=== PATIENT | female | born 1990 | race Caucasian/White ===

== ENCOUNTER → 2016-05-10 | Outpatient (CLI) | payer OTHER ==
--- NOTE | 2016-05-17 00:59 | ECWPNPC ---
PATIENT NAME: VANESSA PATEL : 1990 GENDER: FEMALE VISIT DATE: 05/10/2016 DISCHARGE DATE: 05/10/16 0957 VISIT LOCKED DATE TIME: PHYSICIAN: JORGE GABRIEL RESOURCE: JORGE GABRIEL REASON FOR APPOINTMENT 1. POST PROCEDURE, LBP HISTORY OF PRESENT ILLNESS HISTORY OF PRESENT ILLNESS: PAIN THE PATIENT DESCRIBES THE PAIN... 25 YEAR OLD FEMALE PATIENT WITH HISTORY OF CHRONIC BACK AND LEG PAIN. PATIENT DESCRIBES THE PAIN ACHING, THROBBING, SORE, AND IT COMES AND GOES WITH A PAIN SCORE OF 3/10. 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 PATIENT RECEIVED A LUMBAR EPIDURAL ON 03/29/2016 AND STATES THAT SHE HAD GOOD PAIN RELIEF FOR A MONTH. PATIENT REPORTS THAT IN THE PAST TWO WEEKS THE PAIN CAME BACK ANTERIOR THIGH AREA TO THE CALF AREA ON BOTH LEGS BUT DOES NOT GO PAST THE ANKLE. PATIENT REPORTS THAT WITH GABAPENTIN SHE GETS GOOD PAIN RELIEF WITH OUT ANY SLEEPING DIFFICULTIES, ABLE TO SLEEP THROUGH THE NIGHT. PATIENT REPORTS THAT SHE HAS RECENTLY LOST 10 LBS. PATIENT REPORTS THAT SITTING AND WALKING FOR A LONG PERIOD OF TIME INCREASES THE PAIN IN HER BACK AND LEGS. PATIENT REPORTS THAT SHE HAS TIRED PHYSICAL THERAPY IN THE PAST AND RECEIVED GOOD PAIN RELIEF UNTIL THEY TIRED TO HAVE HER LIFT ITEMS WHICH MADE THE PAIN WORST, BUT SHE IS OPEN TO TRY PHYSICAL THERAPY AGAIN. PATIENT DENIES UNEXPLAINABLE WEIGHT LOSS, FEVER, CHILLS, NEW CHANGES ON HER URINARY OR BOWEL CONTROL. FALL RISK SCREENING: SCREENING :NO FALLS IN THE PAST YEAR CURRENT MEDICATIONS TAKING HUMULIN R U-500 (CONCENTRATED) 500 UNIT/ML SOLUTION SUBCUTANEOUS SLIDING SCALE TAKING LEVEMIR 100 UNIT/ML SOLUTION 40 UNITS SUBCUTANEOUS DAILY TAKING VICTOZA 18 MG/3ML SOLUTION PEN-INJECTOR 1.2ML SUBCUTANEOUS ONCE A DAY TAKING COZAAR 100 MG TABLET 1 TABLET ORALLY ONCE A DAY TAKING VITAMIN D 19610 UNIT CAPSULE 1 CAPSULE ORALLY WEEKLY TAKING CRYSELLE-28 0.3-30 MG-MCG TABLET 1 TABLET ORALLY DAILY FOR THREE WEEKS, 1 WEEK OFF TAKING ZYRTEC 1 TAB ORAL 10 MG DAILY TAKING FLUTICASONE FUROATE 27.5 MCG/SPRAY SUSPENSION 1 PUFF IN EACH NOSTRIL NASALLY TWICE DAILY TAKING GABAPENTIN 300 MG CAPSULE 1 CAPSULE ORALLY THREE TIMES A DAY MDD3 TAKING ACETAMINOPHEN EXTRA STRENGTH 500 MG TABLET 2 TABLETS NEEDED ORALLY EVERY 6 HRS NOT-TAKING IBUPROFEN 800 MG TABLET 1 TABLET ORALLY THREE TIMES A DAY MEDICATION LIST REVIEWED AND RECONCILED WITH THE PATIENT PAST MEDICAL HISTORY MULTIPLE POSTERIOR DISC HERNIATIONS MILD SPINAL CANAL STENOSIS ESSENTIAL HYPERTENSION TYPE I DIABETES ALLERGIES PENICILLIN (FOR ALLERGIES USE ONLY): HROAT CLOSES: ALLERGY SURGICAL HISTORY NO SURGICAL HISTORY DOCUMENTED. FAMILY HISTORY FATHER: ALIVE 62 YRS, DIAGNOSED WITH HEART DISEASE FATHER - [place] 55YO. 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 NEW PATIENT PAIN DIARY TODAY'S VISITNOTES FROM 0-10, WHAT LEVEL IS YOUR PAIN TODAY?0 PAIN CLINIC PFS, CLERGY, PUBLIC HEALTH REFERRALS PFS REFERRAL NEEDED?NO CLERGY REFERRAL NEEDED?NO PUBLIC HEALTH REFERRAL NEEDED?NO WAS THE PROVIDER NOTIFIED OF ANY PERTINENT INFO?NO PFS REFERRAL NEEDED?NO CLERGY REFERRAL NEEDED?NO PUBLIC HEALTH REFERRAL NEEDED?NO WAS THE PROVIDER NOTIFIED OF ANY PERTINENT INFO?NO HOSPITALIZATION/MAJOR DIAGNOSTIC PROCEDURE MONONUCCLEOSIS 2010 DIABETES REVIEW OF SYSTEMS CONSTITUTIONAL: ANY CHANGE IN YOUR MEDICAL CONDITION? NO . CHILLS NO . FEVER NO . INFECTION: DO YOU HAVE NEW INFECTIONS? NO . DO YOU HAVE HISTORY OF MRSA? NO . MUSCULOSKELETAL: ANY NEW PATTERNS OF PAIN OR NUMBNESS? YES, NEW PAIN IS ACHING AND THROBBING WHEN SITTING OR LAYING ON RIGHT SIDE. GOES INTO CALF . GASTROENTEROLOGY: ANY NEW CHANGE IN BOWEL CONTROL? NO . GENITOURINARY: ANY NEW CHANGE IN BLADDER CONTROL? NO . IS THERE A CHANCE YOU COULD BE ? NO . HEMATOLOGY/LYMPH: DO YOU TAKE ANY BLOOD THINNERS? (FOR EXAMPLE- COUMADIN, PLAVIX, AGGRENOX, PLATEL, PRADAXA, OR XARELTO) NO . WHEN WAS YOUR LAST DOSE? DATE: TIME: . NEUROLOGY: HAVE YOU FALLEN IN THE PAST 6 MONTHS? NO . ANY NEW EXTREMITY NUMBNESS OR WEAKNESS? NO . CARDIOLOGY: DO YOU HAVE A PACEMAKER OR DEFIBRILLATOR? NO . RESPIRATORY: HAVE YOU BEEN SICK IN THE PAST WEEK? NO . FEVER NO . FLU LIKE SYMPTOMS? NO . COUGH NO . INTEGUMENTARY: DO YOU HAVE ANY RASHES OR OPEN SORES? NO . ALLERGIC/IMMUNO: ARE YOU ALLERGIC TO SHELLFISH OR IV DYE? NO . ANY NEW ALLERGIES? NO . PSYCHIATRIC: DO YOU HAVE THOUGHTS OF HURTING YOURSELF OR SOMEONE ELSE? NO . ARE YOU ABUSED, NEGLECTED, OR IN AN UNSAFE ENVIRONMENT? NO . ENDOCRINOLOGY: ARE YOU DIABETIC? YES, TYPE I, MANAGED WITH INSULIN. FSBS 198 STATED BY PT. . OTHER: DO YOU NEED ANY PRESCRIPTIONS? NO . IF YES, PLEASE LIST: ____ . ANY NEW PROBLEMS WITH YOUR MEDICATIONS? NO . WHEN DID YOU LAST EAT? ____ . WHEN DID YOU LAST DRINK? ____ . WHAT DID YOU LAST DRINK? ____ . NAME OF PERSON DRIVING YOU HOME? ____ . DO YOU HAVE ANY OTHER QUESTIONS OR CONCERNS NO . REVIEWED BY: PROVIDER: JORGE GABRIEL MD . VITAL SIGNS WT 317 LBS, HT 68 IN, BMI 48.19 INDEX, BP 158/84 MM HG, HR 103 /MIN, RR 16 /MIN, TEMP 98.9 F, OXYGEN SAT % 98, SAFE IN ENV? (Y/N) Y, NA INITIALS TL 0851, REVIEWED BY: ANDRE. EXAMINATION : PATIENT IS ALERT O X 3 AND COOPERATIVE. PATIENT AMBULATES WITH A LIMP ON THE RIGHT LEG. PATIENT IS ABLE TO FLEX HER BACK AT 85 DEGREES, AND EXTEND BACK AT 10 DEGREES. PATIENT HAS TENDERNESS IN THE RIGHT LOWER BACK PARASPINAL MUSCLE GROUP. RIGHT LEG IS WEAKER AT FLEXION AND EXTENSION. MRI DONE ON 09/08/15 OF THE LUMBAR SPINE SHOWS DISC HERNIATIONS AT L2-L3 THROUGH L5-S1 ALONG WITH CANAL STENOSIS. ASSESSMENTS INTERVERTEBRAL DISC DISORDERS WITH RADICULOPATHY, LUMBAR REGION - M51.16 (PRIMARY) INTERVERTEBRAL DISC DISORDERS WITH RADICULOPATHY, LUMBOSACRAL REGION - M51.17 TREATMENT INTERVERTEBRAL DISC DISORDERS WITH RADICULOPATHY, LUMBAR REGION NOTES: WE DISCUSSED SEVERAL ISSUES WITH MS. PATEL'S PAIN MANAGEMENT CASE. I REFILLED GABAPENTIN TODAY, AND THE PATIENT WILL CONTINUE ON THE SAME MEDICATION REGIMEN BEFORE. I DISCUSSED WITH THE PATIENT THAT SHE IS STILL VERY YOUNG, AND THAT A AEROLOGIST GOAL WOULD BE TO RETURN TO WORK. I SPOKE WITH PATIENT ABOUT CONTINUING HER WEIGHT LOSE. I ADVISED THE PATIENT THAT IT WOULD BE BENEFICIAL FOR HER TO SEE A PROPERTY CLERK TO HELP HER LOSE WEIGHT. I WILL ORDER PHYSICAL THERAPY FOR THE PATIENT TODAY. INFORMED PATIENT THAT SHE NEEDS TO DISCUSS WITH THE PHYSICAL THERAPIST ABOUT WHAT SHE IS ABLE TO DO AND WHAT SHE IS NOT ABLE TO DO. PATIENT TO FOLLOW UP IN 2 MONTHS. INSTRUCTIONS WERE GIVEN, QUESTIONS WERE ANSWERED, PATIENT REPORTS UNDERSTANDING AND AGREES WITH THE PLAN. I, JOHN ALMARAZ, DOCUMENTED THE ABOVE INFORMATION ACTING A SCRIBE FOR DR. GABRIEL. I HAVE REVIEWED THE ABOVE DOCUMENT, WRITTEN BY JOHN ALMARAZ SCRIBE AND I VERIFY THAT IT IS ACCURATE. OTHERS REFILL GABAPENTIN CAPSULE, 300 MG, 1 CAPSULE, ORALLY FOR PAIN, THREE TIMES A DAY MDD3, 30 DAY(S), 90, REFILLS 3 PROCEDURES PN WORKMANS' COMP OPINION IN YOUR OPINION, WAS THE INCIDENT THAT THE PATIENT DESCRIBED THE COMPETENT MEDICAL CAUSE OF THIS INJURY/ILLNESS? YES ARE THE PATIENT'S COMPLAINTS CONSISTENT WITH HIS/HER HISTORY OF THE INJURY/ILLNESS? YES IS THE PATIENT'S HISTORY OF THE INJURY/ILLNESS CONSISTENT WITH YOUR OBJECTIVE FINDING? YES WHAT IS THE PERCENTAGE OF TEMPORARY IMPAIRMENT? MODERATE TO MARKED = 66.7% IS THE PATIENT WORKING? NO DOCTOR ON SITE: JORGE ANGUIANO MD PROCEDURE CODES FA211 ESTABILISHED PATIENT [facility] CHARGE G8730 PAIN ASSESS POS TOOL F/U PLAN DOC G8427 DOC MEDS VERIFIED W/PT OR RE FOLLOW UP 2 MONTHS ELECTRONICALLY SIGNED BY JORGE GABRIEL MD ON 05/16/2016 AT 08:52 PM EST DISCLAIMER : THIS IS A VISIT SUMMARY EXTRACTED FROM THE [employer] CHART. IT IS NOT A COPY OF THE [employer] PROGRESS NOTE. SOM
== END ==
LOC: M PAIN 09:00
PROVIDERS: ATTEND Anesthesiology
DX: Z09 Encounter for follow-up examination after completed treatment for conditions other than malignant neoplasm (principal); G89.29 Other chronic pain; M51.16 Intervertebral disc disorders with radiculopathy, lumbar region; M51.17 Intervertebral disc disorders with radiculopathy, lumbosacral region; E11.9 Type 2 diabetes mellitus without complications; I10 Essential (primary) hypertension; M48.00 Spinal stenosis, site unspecified; Z79.4 Long term (current) use of insulin; Z79.82 Long term (current) use of aspirin; Z79.1 Long term (current) use of non-steroidal anti-inflammatories (NSAID); Z79.899 Other long term (current) drug therapy; Z88.0 Allergy status to penicillin; Z98.890 Other specified postprocedural states

== ENCOUNTER → 2016-07-15 | Outpatient (CLI) | payer OTHER ==
--- NOTE | 2016-07-24 23:46 | ECWPNPC ---
PATIENT NAME: VANESSA PAETL : 1990 GENDER: FEMALE VISIT DATE: 07/15/2016 DISCHARGE DATE: 07/15/16 1655 VISIT LOCKED DATE TIME: PHYSICIAN: JORGE GABRIEL RESOURCE: JORGE GABRIEL REASON FOR APPOINTMENT 1. W/C BACK PAIN HISTORY OF PRESENT ILLNESS HISTORY OF PRESENT ILLNESS: PAIN THE PATIENT DESCRIBES THE PAIN... 25 YEAR OLD FEMALE PATIENT WITH HISTORY OF CHRONIC LOW BACK PAIN. PATIENT DESCRIBES THE PAIN ACHING AND SHARP WITH THE PAIN COMING AND GOING WITH A PAIN SCORE OF 5/10. 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 PATEL TRIED TO CATCH THE PATIENT. PATIENT RECEIVED A LUMBAR EPIDURAL ON 03/29/16 AND SAW A 50% DECREASE IN PAIN AND INCREASED MOBILITY AND FUNCTIONALITY UNTIL LATE JUNE. CURRENTLY THE PATIENT IS USING GABAPENTIN TO AID IN PAIN RELIEF WHICH SHE STATES KEEPS HER MOBILE AND FUNCTIONAL. AT THIS TIME THE PATIENT STATES THAT ANY TYPE OF ACTIVITY INCREASES THE PAIN IN HER LOWER BACK AND MEDICATIONS AND INTERVENTIONS AID IN PAIN RELIEF. MRS. PATEL EXPRESSES SHE WOULD LIKE TO RETURN TO PHYSICAL THERAPY IT AIDED IN PAIN RELIEF WELL MOBILITY AND FUNCTIONALLY. PATIENT DENIES UNEXPLAINABLE WEIGHT LOSS, FEVER, CHILLS, NEW CHANGES ON HER URINARY OR BOWEL CONTROL. FALL RISK SCREENING: SCREENING :NO FALLS IN THE PAST YEAR CURRENT MEDICATIONS TAKING GABAPENTIN 300 MG CAPSULE 1 CAPSULE ORALLY THREE TIMES A DAY MDD3 TAKING HUMULIN R U-500 (CONCENTRATED) 500 UNIT/ML SOLUTION SUBCUTANEOUS SLIDING SCALE TAKING LEVEMIR 100 UNIT/ML SOLUTION 45 UNITS SUBCUTANEOUS DAILY TAKING VICTOZA 18 MG/3ML SOLUTION PEN-INJECTOR 1.8ML SUBCUTANEOUS ONCE A DAY TAKING COZAAR 100 MG TABLET 1 TABLET ORALLY ONCE A DAY TAKING VITAMIN D 51293 UNIT CAPSULE 1 CAPSULE ORALLY 2X/WEEK TAKING CRYSELLE-28 0.3-30 MG-MCG TABLET 1 TABLET ORALLY DAILY FOR THREE WEEKS, 1 WEEK OFF TAKING ZYRTEC 1 TAB ORAL 10 MG DAILY TAKING FLUTICASONE FUROATE 27.5 MCG/SPRAY SUSPENSION 1 PUFF IN EACH NOSTRIL NASALLY TWICE DAILY TAKING ACETAMINOPHEN EXTRA STRENGTH 500 MG TABLET 2 TABLETS NEEDED ORALLY EVERY 6 HRS TAKING ASPIRIN 81 MG TABLET DELAYED RELEASE 1 TABLET ORALLY ONCE A DAY NOT-TAKING IBUPROFEN 800 MG TABLET 1 TABLET ORALLY THREE TIMES A DAY MEDICATION LIST REVIEWED AND RECONCILED WITH THE PATIENT PAST MEDICAL HISTORY MULTIPLE POSTERIOR DISC HERNIATIONS MILD SPINAL CANAL STENOSIS ESSENTIAL HYPERTENSION TYPE I DIABETES LEGALLY BLIND OD ALLERGIES PENICILLIN (FOR ALLERGIES USE ONLY): HROAT CLOSES: ALLERGY SURGICAL HISTORY NO SURGICAL HISTORY DOCUMENTED. FAMILY HISTORY FATHER: ALIVE 62 YRS, DIAGNOSED WITH HEART DISEASE FATHER - [place] 55YO. SOCIAL HISTORY GENERAL: PAIN CLINIC PFS, CLERGY, PUBLIC HEALTH REFERRALS CLERGY REFERRAL NEEDED?NO WAS THE PROVIDER NOTIFIED OF ANY PERTINENT INFO?NO PFS REFERRAL NEEDED?NO PUBLIC HEALTH REFERRAL NEEDED?NO PATIENT: ____. HOSPITALIZATION/MAJOR DIAGNOSTIC PROCEDURE MONONUCCLEOSIS 2010 DIABETES REVIEW OF SYSTEMS CONSTITUTIONAL: ANY CHANGE IN YOUR MEDICAL CONDITION? YES, FOUND OUT 1 MONTH AGO SHE IS LEGALLY BLIND IN OD. HAS BEEN RECEIVING INJECTIONS AND STARTED ON AN EYE DROP(NOT SURE WHAT IT IS). THEY ARE PLANNING ON DOING LASER SUERGERY . CHILLS NO . FEVER NO . INFECTION: DO YOU HAVE NEW INFECTIONS? NO . DO YOU HAVE HISTORY OF MRSA? NO . MUSCULOSKELETAL: ANY NEW PATTERNS OF PAIN OR NUMBNESS? YES, PAIN IS ON LEFT SIDE OF BACK YET. FEELS GOOD WHEN SHE 1ST GETS UP BUT PAIN IS WORSE AFTER DOING THINGS. . GASTROENTEROLOGY: ANY NEW CHANGE IN BOWEL CONTROL? NO . GENITOURINARY: ANY NEW CHANGE IN BLADDER CONTROL? NO . IS THERE A CHANCE YOU COULD BE ? NO . HEMATOLOGY/LYMPH: DO YOU TAKE ANY BLOOD THINNERS? (FOR EXAMPLE- COUMADIN, PLAVIX, AGGRENOX, PLATEL, PRADAXA, OR XARELTO) NO . WHEN WAS YOUR LAST DOSE? DATE: TIME: . NEUROLOGY: HAVE YOU FALLEN IN THE PAST 6 MONTHS? NO . ANY NEW EXTREMITY NUMBNESS OR WEAKNESS? NO . CARDIOLOGY: DO YOU HAVE A PACEMAKER OR DEFIBRILLATOR? NO . RESPIRATORY: HAVE YOU BEEN SICK IN THE PAST WEEK? NO . FEVER NO . FLU LIKE SYMPTOMS? NO . COUGH NO . INTEGUMENTARY: DO YOU HAVE ANY RASHES OR OPEN SORES? NO . ALLERGIC/IMMUNO: ARE YOU ALLERGIC TO SHELLFISH OR IV DYE? NO . ANY NEW ALLERGIES? NO . PSYCHIATRIC: DO YOU HAVE THOUGHTS OF HURTING YOURSELF OR SOMEONE ELSE? NO . ARE YOU ABUSED, NEGLECTED, OR IN AN UNSAFE ENVIRONMENT? NO . ENDOCRINOLOGY: ARE YOU DIABETIC? YES, FSBS THIS A.M--153 . OTHER: DO YOU NEED ANY PRESCRIPTIONS? YES . IF YES, PLEASE LIST: ____GABAPENTIN . ANY NEW PROBLEMS WITH YOUR MEDICATIONS? NO . WHEN DID YOU LAST EAT? ____ . WHEN DID YOU LAST DRINK? ____ . WHAT DID YOU LAST DRINK? ____ . NAME OF PERSON DRIVING YOU HOME? ____ . DO YOU HAVE ANY OTHER QUESTIONS OR CONCERNS NO . REVIEWED BY: PROVIDER: JORGE GABRIEL MD . VITAL SIGNS WT 318 LBS, HT 68 IN, BMI 48.35 INDEX, BP 147/81 MM HG, HR 116 /MIN, RR 16 /MIN, TEMP 99.8 F, OXYGEN SAT % 97, NA INITIALS AW 328. EXAMINATION : PATIENT IS ALERT O X 3 AND COOPERATIVE. PATIENT AMBULATES WITH A LIMP ON THE RIGHT LEG. PATIENT IS ABLE TO FLEX HER BACK AT 85 DEGREES, AND EXTEND BACK AT 10 DEGREES. PATIENT HAS TENDERNESS IN THE RIGHT LOWER BACK PARASPINAL MUSCLE GROUP. RIGHT LEG IS WEAKER AT FLEXION AND EXTENSION. MRI DONE ON 09/08/15 OF THE LUMBAR SPINE SHOWS DISC HERNIATIONS AT L2-L3 THROUGH L5-S1 ALONG WITH CANAL STENOSIS. ASSESSMENTS INTERVERTEBRAL DISC DISORDERS WITH RADICULOPATHY, LUMBAR REGION - M51.16 (PRIMARY) INTERVERTEBRAL DISC DISORDERS WITH RADICULOPATHY, LUMBOSACRAL REGION - M51.17 TREATMENT INTERVERTEBRAL DISC DISORDERS WITH RADICULOPATHY, LUMBAR REGION NOTES: WE DISCUSSED SEVERAL ISSUES WITH MRS. PATEL'S PAIN MANAGEMENT CASE. AT THIS TIME I WOULD LIKE THE PATIENT TO CONTINUE USING GABAPENTIN FOR THE NEUROPATHIC PAIN AND ACETAMINOPHEN FOR THE SOMATIC PAIN. I WOULD LIKE THE PATIENT TO START USING CYMBALTA TO SEE IF IT WILL AID IN RELIEF FOR THE NEUROPATHIC PAIN. PATIENT IS AWARE TO DISCONTINUE THE MEDICATION IS SHE HAS ANY ADVERSE SIDE EFFECTS. I WILL REQUEST AUTHORIZATION FOR THE PATIENT TO RETURN TO PHYSICAL THERAPY SHE DID SEE A BENENFITS TO IT. WE DISCUSSED INTERVENTIONS AND AT THIS TIME THE PATIENT WOULD LIKE TO HOLD OFF ON INJECTIONS AND TRY THE MEDICATIONS AND PHYSICAL THERAPY AT THIS TIME. PATIENT WILL RETURN TO THE CLINIC IN 3 WEEKS AND WAS ADVISED TO CALL IF THE PAIN SIGNIFICANTLY INCREASES OR WITH ANY ADVERSE SIDE EFFECTS TO THE CYMBALTA. INSTRUCTIONS WERE GIVEN, QUESTIONS WERE ANSWERED, PATIENT REPORTS UNDERSTANDING AND AGREES WITH THE PLAN. I, WESTON CASILLAS, DOCUMENTED THE ABOVE INFORMATION ACTING A SCRIBE FOR DR. GABRIEL. I HAVE REVIEWED THE ABOVE DOCUMENT, WRITTEN BY WESTON FELDER AND I VERIFY THAT IT IS ACCURATE. OTHERS REFILL GABAPENTIN CAPSULE, 300 MG, 1 CAPSULE, ORALLY, THREE TIMES A DAY MDD3, 30 DAY(S), 90, REFILLS 2 REFILL ACETAMINOPHEN EXTRA STRENGTH TABLET, 500 MG, 2 TABLETS NEEDED, ORALLY FOR PAIN, EVERY 6 MDD6, 30 DAYS, 80, REFILLS 2 START CYMBALTA CAPSULE DELAYED RELEASE PARTICLES, 30 MG, 1 CAPSULE, ORALLY, TWICE A DAY FOR PAIN, 30 DAY(S), 60, REFILLS 2 PREVENTIVE MEDICINE PAIN CLINIC TEACHING: MEDICATIONS PRINTED INFORMATION ON CYMBALTA GIVEN TO AND REVIEWED WITH PATIENT AND SHE VERBALIZED UNDERSTANDING. PROCEDURE CODES FA211 ESTABILISHED PATIENT [facility] CHARGE G8427 DOC MEDS VERIFIED W/PT OR RE G8730 PAIN ASSESS POS TOOL F/U PLAN DOC DISPOSITION & COMMUNICATION FOLLOW UP 3 WEEKS ELECTRONICALLY SIGNED BY JORGE GABRIEL MD ON 07/24/2016 AT 09:07 PM EDT DISCLAIMER : THIS IS A VISIT SUMMARY EXTRACTED FROM THE [employer] CHART. IT IS NOT A COPY OF THE [employer] PROGRESS NOTE. MIRTHAD
== END | disposition home or self-care (01) ==
LOC: M PAIN 14:40
PROVIDERS: ATTEND Anesthesiology
DX: Z09 Encounter for follow-up examination after completed treatment for conditions other than malignant neoplasm (principal); G89.29 Other chronic pain; M51.16 Intervertebral disc disorders with radiculopathy, lumbar region; M51.17 Intervertebral disc disorders with radiculopathy, lumbosacral region; E10.9 Type 1 diabetes mellitus without complications; I10 Essential (primary) hypertension; M48.00 Spinal stenosis, site unspecified; Z79.899 Other long term (current) drug therapy; Z79.82 Long term (current) use of aspirin; Z79.4 Long term (current) use of insulin; Z88.0 Allergy status to penicillin

== ENCOUNTER → 2016-08-09 | Outpatient (REF) | payer OTHER ==
[2016-08-09 19:30] LABS: FREE T4 0.99 NG/DL (0.76-1.46)
== END ==
LOC: M LAB REF 17:08
PROVIDERS: ATTEND Internal Medicine Nephrology
DX: E03.9 Hypothyroidism, unspecified (principal)

== ENCOUNTER → 2016-10-28 | Outpatient (CLI) | payer OTHER ==
--- NOTE | 2016-11-10 00:36 | ECWPNPC ---
PATIENT NAME: VANESSA PATEL : 1990 GENDER: FEMALE VISIT DATE: 10/28/2016 DISCHARGE DATE: 10/28/16 1617 VISIT LOCKED DATE TIME: PHYSICIAN: JORGE GABRIEL RESOURCE: JORGE GABRIEL REASON FOR APPOINTMENT 1. LOW BACK PAIN HISTORY OF PRESENT ILLNESS HISTORY OF PRESENT ILLNESS: PAIN THE PATIENT DESCRIBES THE PAIN... 25 YEAR OLD FEMALE PATIENT WITH HISTORY OF CHRONIC LOW BACK PAIN. PATIENT DESCRIBES THE PAIN ACHING AND SHARP WITH THE PAIN COMING AND GOING WITH A PAIN SCORE OF 5/10. 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 PATEL TRIED TO CATCH THE PATIENT. PATIENT RECEIVED A LUMBAR EPIDURAL ON 03/29/16 AND STATES THAT THE PAIN IS STARTING TO COME BACK ESPECIALLY IN HER LEGS. CURRENTLY THE PATIENT IS USING GABAPENTIN TO AID IN PAIN RELIEF WHICH SHE STATES KEEPS HER MOBILE AND FUNCTIONAL. AT THIS TIME THE PATIENT STATES THAT ANY TYPE OF ACTIVITY INCREASES THE PAIN IN HER LOWER BACK AND MEDICATIONS AND INTERVENTIONS AID IN PAIN RELIEF. MRS. PATEL EXPRESSES SHE WOULD LIKE TO RETURN TO PHYSICAL THERAPY IT AIDED IN PAIN RELIEF WELL MOBILITY AND FUNCTIONALLY AND THE PATIENT WAS ABLE TO DO THINGS SUCH PUTTING HER SHOES ON AND THE DISHES DUE TO PHYSICAL THERAPY. PATIENT DENIES UNEXPLAINABLE WEIGHT LOSS, FEVER, CHILLS, NEW CHANGES ON HER URINARY OR BOWEL CONTROL. FALL RISK SCREENING: SCREENING :NO FALLS IN THE PAST YEAR CURRENT MEDICATIONS TAKING GABAPENTIN 300 MG CAPSULE 1 CAPSULE ORALLY THREE TIMES A DAY MDD3 TAKING ACETAMINOPHEN EXTRA STRENGTH 500 MG TABLET 2 TABLETS NEEDED ORALLY FOR PAIN EVERY 6 MDD6 TAKING CYMBALTA 30 MG CAPSULE DELAYED RELEASE PARTICLES 1 CAPSULE ORALLY TWICE A DAY FOR PAIN, NOTES: NOT APPROVED TAKING HUMULIN R U-500 (CONCENTRATED) 500 UNIT/ML SOLUTION SUBCUTANEOUS SLIDING SCALE TAKING LEVEMIR 100 UNIT/ML SOLUTION 45 UNITS SUBCUTANEOUS DAILY TAKING VICTOZA 18 MG/3ML SOLUTION PEN-INJECTOR 1.8ML SUBCUTANEOUS ONCE A DAY TAKING COZAAR 100 MG TABLET 1 TABLET ORALLY ONCE A DAY TAKING VITAMIN D 55002 UNIT CAPSULE 1 CAPSULE ORALLY 2X/WEEK TAKING CRYSELLE-28 0.3-30 MG-MCG TABLET 1 TABLET ORALLY DAILY FOR THREE WEEKS, 1 WEEK OFF TAKING ZYRTEC 1 TAB ORAL 10 MG DAILY TAKING FLUTICASONE FUROATE 27.5 MCG/SPRAY SUSPENSION 1 PUFF IN EACH NOSTRIL NASALLY TWICE DAILY TAKING ASPIRIN 81 MG TABLET DELAYED RELEASE 1 TABLET ORALLY ONCE A DAY TAKING AMLODIPINE BESYLATE 10 MG TABLET 1 TABLET ORALLY ONCE A DAY TAKING COREG 3.125 MG TABLET ORALLY NOT-TAKING IBUPROFEN 800 MG TABLET 1 TABLET ORALLY THREE TIMES A DAY MEDICATION LIST REVIEWED AND RECONCILED WITH THE PATIENT PAST MEDICAL HISTORY MULTIPLE POSTERIOR DISC HERNIATIONS MILD SPINAL CANAL STENOSIS ESSENTIAL HYPERTENSION TYPE I DIABETES LEGALLY BLIND OD ALLERGIES PENICILLIN (FOR ALLERGIES USE ONLY): HROAT CLOSES: ALLERGY REVIEW OF SYSTEMS REVIEWED BY: PROVIDER: JORGE GABRIEL MD . CONSTITUTIONAL: ANY CHANGE IN YOUR MEDICAL CONDITION? NO . CHILLS NO . FEVER NO . INFECTION: DO YOU HAVE NEW INFECTIONS? NO . DO YOU HAVE HISTORY OF MRSA? NO . MUSCULOSKELETAL: ANY NEW PATTERNS OF PAIN OR NUMBNESS? NO . GASTROENTEROLOGY: ANY NEW CHANGE IN BOWEL CONTROL? NO . GENITOURINARY: ANY NEW CHANGE IN BLADDER CONTROL? NO . IS THERE A CHANCE YOU COULD BE ? NO . HEMATOLOGY/LYMPH: DO YOU TAKE ANY BLOOD THINNERS? (FOR EXAMPLE- COUMADIN, PLAVIX, AGGRENOX, PLATEL, PRADAXA, OR XARELTO) NO . WHEN WAS YOUR LAST DOSE? DATE: TIME: . NEUROLOGY: HAVE YOU FALLEN IN THE PAST 6 MONTHS? NO . ANY NEW EXTREMITY NUMBNESS OR WEAKNESS? NO . CARDIOLOGY: DO YOU HAVE A PACEMAKER OR DEFIBRILLATOR? NO . RESPIRATORY: HAVE YOU BEEN SICK IN THE PAST WEEK? NO . FEVER NO . FLU LIKE SYMPTOMS? NO . COUGH NO . INTEGUMENTARY: DO YOU HAVE ANY RASHES OR OPEN SORES? NO . ALLERGIC/IMMUNO: ARE YOU ALLERGIC TO SHELLFISH OR IV DYE? NO . ANY NEW ALLERGIES? NO . PSYCHIATRIC: DO YOU HAVE THOUGHTS OF HURTING YOURSELF OR SOMEONE ELSE? NO . ARE YOU ABUSED, NEGLECTED, OR IN AN UNSAFE ENVIRONMENT? NO . ENDOCRINOLOGY: ARE YOU DIABETIC? YES . OTHER: DO YOU NEED ANY PRESCRIPTIONS? YES . IF YES, PLEASE LIST: GABAPENTIN . ANY NEW PROBLEMS WITH YOUR MEDICATIONS? NO . WHEN DID YOU LAST EAT? ____ . WHEN DID YOU LAST DRINK? ____ . WHAT DID YOU LAST DRINK? ____ . NAME OF PERSON DRIVING YOU HOME? ____ . DO YOU HAVE ANY OTHER QUESTIONS OR CONCERNS NO . VITAL SIGNS WT 324.0 LBS, HT 68 IN, BMI 49.26 INDEX, BP 154/93 MM HG, HR 97 /MIN, RR 16 /MIN, TEMP 98.0 F, OXYGEN SAT % 99%, NA INITIALS TL 1436, REVIEWED BY: DYLAN. EXAMINATION : PATIENT IS ALERT O X 3 AND COOPERATIVE. PATIENT AMBULATES WITH A LIMP ON THE RIGHT LEG. PATIENT IS ABLE TO FLEX HER BACK AT 85 DEGREES, AND EXTEND BACK AT 10 DEGREES. PATIENT HAS TENDERNESS IN THE RIGHT LOWER BACK PARASPINAL MUSCLE GROUP. RIGHT LEG IS WEAKER AT FLEXION AND EXTENSION. MRI DONE ON 09/08/15 OF THE LUMBAR SPINE SHOWS DISC HERNIATIONS AT L2-L3 THROUGH L5-S1 ALONG WITH CANAL STENOSIS. ASSESSMENTS INTERVERTEBRAL DISC DISORDERS WITH RADICULOPATHY, LUMBAR REGION - M51.16 (PRIMARY) INTERVERTEBRAL DISC DISORDERS WITH RADICULOPATHY, LUMBOSACRAL REGION - M51.17 TREATMENT INTERVERTEBRAL DISC DISORDERS WITH RADICULOPATHY, LUMBAR REGION NOTES: WE DISCUSSED SEVERAL ISSUES WITH MRS. PATEL'S PAIN MANAGEMENT CASE. AT THIS TIME THE PATIENT HE WILL CONTINUE WITH GABAPENTIN FOR THE NEUROPATHIC PAIN. I WOULD STILL LIKE THE PATIENT OT START CYMBALTA FOR THE NEUROPATHIC PAIN. PATIENT WAS REMINDED TO BRING ALL MEDICATIONS IN THEIR ORIGINAL BOTTLES TO EACH VISIT. PATIENT WAS ADVISED TO BRING MEDICATION TO EVERY VISIT. I WOULD LIKE TO REQUEST PHYSICAL THERAPY AGAIN IT AIDED THE PATIENT GREATLY IN PAIN RELIEF WELL INCREASING MOBILITY AND FUNCTIONALITY. DUE TO THE LUMBAR EPIDURAL STARTING TO WEAR OFF I WOULD LIKE TO REQUEST ANOTHER EPIDURAL. PATIENT HAD LONG LASTING RELIEF WITH INCREASED MOBILITY AND FUNCTIONALITY FROM THE PREVIOUS ONE. WE DISCUSSED THE RISKS, BENENFITS, AND ALTNERATIVES OF THE INJECTION AND THE PATIENT WOULD LIKE TO PROCEED AT THIS TIME. OTHERS REFILL GABAPENTIN CAPSULE, 300 MG, 1 CAPSULE, ORALLY, FOUR TIMES DAILY FOR PAIN, 30 DAY(S), 120, REFILLS 2 START CYMBALTA CAPSULE DELAYED RELEASE PARTICLES, 30 MG, 1 CAPSULE, ORALLY, TWICE A DAY, 30 DAY(S), 60, REFILLS 2 PROCEDURES PN WORKMANS' COMP OPINION IN YOUR OPINION, WAS THE INCIDENT THAT THE PATIENT DESCRIBED THE COMPETENT MEDICAL CAUSE OF THIS INJURY/ILLNESS? YES ARE THE PATIENT'S COMPLAINTS CONSISTENT WITH HIS/HER HISTORY OF THE INJURY/ILLNESS? YES IS THE PATIENT'S HISTORY OF THE INJURY/ILLNESS CONSISTENT WITH YOUR OBJECTIVE FINDING? YES WHAT IS THE PERCENTAGE OF TEMPORARY IMPAIRMENT? MODERATE TO MARKED = 66.7% IS THE PATIENT WORKING? NO DOCTOR ON SITE: JORGE ANGUIANO MD PROCEDURE CODES FA211 ESTABILISHED PATIENT [facility] CHARGE DISPOSITION & COMMUNICATION FOLLOW UP 6 WEEKS ELECTRONICALLY SIGNED BY JORGE GABRIEL MD ON 11/09/2016 AT 12:49 PM EDT DISCLAIMER : THIS IS A VISIT SUMMARY EXTRACTED FROM THE [employer] CHART. IT IS NOT A COPY OF THE [employer] PROGRESS NOTE. MIRTHAD
== END | disposition home or self-care (01) ==
LOC: M PAIN 14:40
PROVIDERS: ATTEND Anesthesiology
DX: G89.29 Other chronic pain (principal); M51.16 Intervertebral disc disorders with radiculopathy, lumbar region; M51.17 Intervertebral disc disorders with radiculopathy, lumbosacral region; M48.00 Spinal stenosis, site unspecified; I10 Essential (primary) hypertension; E10.9 Type 1 diabetes mellitus without complications; H54.8 Legal blindness, as defined in USA; Z79.899 Other long term (current) drug therapy; Z79.82 Long term (current) use of aspirin; Z79.51 Long term (current) use of inhaled steroids; Z88.0 Allergy status to penicillin

== ENCOUNTER → 2017-01-17 | Outpatient (CLI) | payer OTHER ==
--- NOTE | 2017-02-07 01:20 | ECWPNPC ---
PATIENT NAME: VANESSA PATEL : 1990 GENDER: FEMALE VISIT DATE: 01/17/2017 DISCHARGE DATE: 01/17/17 1202 VISIT LOCKED DATE TIME: PHYSICIAN: FERNANDO AGUILAR RESOURCE: FERNANDO AGUILAR REASON FOR APPOINTMENT 1. W/C MEDS, INCREASING PAIN HISTORY OF PRESENT ILLNESS HISTORY OF PRESENT ILLNESS: PAIN THE PATIENT DESCRIBES THE PAIN... THE PATIENT DESCRIBES THE PAIN... 26 YEAR OLD FEMALE PATIENT WITH HISTORY OF CHRONIC LOW BACK PAIN. PATIENT DESCRIBES THE PAIN ACHING AND SHARP WITH THE PAIN COMING AND GOING WITH A PAIN SCORE OF 7/10. PATIENT WAS HURT IN A WORK RELATED INJURY APRIL 2015. SHE WAS WORKING AT [employer] A [employer] WHEN A PATIENT STARTED TO FALL AND MRS. PATEL TRIED TO CATCH THE PATIENT. SHE IS BEING SEEN ON AN URGENT BASIS FOR INCREASE IN LOW BACK PAIN WITH RADIATION/RADICULOPATHY DOWN RIGHT LEG AND FOOT.STATES SHE HAS HAD INCREASE IN LOW BACK PAIN AND RIGHT LEG PAIN AFTER PT ON Dec.SHE HAS FINISHED PT X6 WEEKS .DESCRIBES PAIN INTERMITTENT AND SHARP PAIN.REPORTING NEW ONSET OF RIGHT LATERAL LEG AND FOOT NUMBNESS AND TINGLING SINCE PT.CURRENTLY USING GABAPENTIN 300MG 2 TAB BID.WAS USING VICODEN AND A MUSCLE RELAXER PAST TWO WEEKS PRESCRIBED BY DR. LEE DUE TO INCREASED PAIN AFTER PT.DENIES BOWEL OR BLADDER INCONTINENCE.PAIN IS AGGREVATED BY LAYING DOWN AND FINDING IT DIFFICULT TO SLEEP.REPORTS NOT MUCH IMPROVEMENT WITH PAIN AFTER TAKING HYDROCODONE AND MUSCLE RELAXER. FALL RISK SCREENING: SCREENING :NO FALLS IN THE PAST YEAR CURRENT MEDICATIONS TAKING ACETAMINOPHEN EXTRA STRENGTH 500 MG TABLET 2 TABLETS NEEDED ORALLY FOR PAIN EVERY 6 MDD6 TAKING HUMULIN R U-500 (CONCENTRATED) 500 UNIT/ML SOLUTION SUBCUTANEOUS SLIDING SCALE TAKING LEVEMIR 100 UNIT/ML SOLUTION 45 UNITS SUBCUTANEOUS DAILY TAKING VICTOZA 18 MG/3ML SOLUTION PEN-INJECTOR 1.8ML SUBCUTANEOUS ONCE A DAY TAKING COZAAR 100 MG TABLET 1 TABLET ORALLY ONCE A DAY TAKING VITAMIN D 87411 UNIT CAPSULE 1 CAPSULE ORALLY 2X/WEEK TAKING CRYSELLE-28 0.3-30 MG-MCG TABLET 1 TABLET ORALLY DAILY FOR THREE WEEKS, 1 WEEK OFF TAKING ZYRTEC 1 TAB ORAL 10 MG DAILY TAKING FLUTICASONE FUROATE 27.5 MCG/SPRAY SUSPENSION 1 PUFF IN EACH NOSTRIL NASALLY TWICE DAILY TAKING AMLODIPINE BESYLATE 10 MG TABLET 1 TABLET ORALLY ONCE A DAY TAKING COREG 3.125 MG TABLET ORALLY TAKING GABAPENTIN 300 MG CAPSULE 1 CAPSULE ORALLY FOUR TIMES DAILY FOR PAIN TAKING CYMBALTA 30 MG CAPSULE DELAYED RELEASE PARTICLES 1 CAPSULE ORALLY TWICE A DAY TAKING IBUPROFEN 800 MG TABLET 1 TABLET ORALLY THREE TIMES A DAY NOT-TAKING CYMBALTA 30 MG CAPSULE DELAYED RELEASE PARTICLES 1 CAPSULE ORALLY TWICE A DAY FOR PAIN, NOTES: NOT APPROVED NOT-TAKING ASPIRIN 81 MG TABLET DELAYED RELEASE 1 TABLET ORALLY ONCE A DAY MEDICATION LIST REVIEWED AND RECONCILED WITH THE PATIENT PAST MEDICAL HISTORY MULTIPLE POSTERIOR DISC HERNIATIONS MILD SPINAL CANAL STENOSIS ESSENTIAL HYPERTENSION TYPE I DIABETES LEGALLY BLIND OD ALLERGIES PENICILLIN (FOR ALLERGIES USE ONLY): HROAT CLOSES: ALLERGY SOCIAL HISTORY GENERAL: TOBACCO USE ARE YOU A:NONSMOKER RECREATIONAL DRUG USE DRUG USE? NO , PATIENT DENIES ABUSE OR MISSUSED OF ANY MEDICATION . , PATIENT DENIES USE OF ANY ILLEGAL SUBSTANCE INCLUDING MARIJUANA OR COCAINE . . CAFFEINE CAFFEINE USE? NO . OCCUPATION: [employer]. SPIRITISM NON. LEARNING BARRIERS / SPECIAL NEEDS BARRIERS TO LEARNING?NO HEARING IMPAIRED?NO VISION IMPAIRED?YES WEARS GLASSES COGNITIVELY IMPAIRED?NO READINESS TO LEARN?YES LEARNING PREFERENCES?NO PSYCHOLOGICAL HX TREATMENT NO . PAIN CLINIC PFS, CLERGY, PUBLIC HEALTH REFERRALS HAS THE PATIENT BEEN EDUCATED REGARDING HIS/HER PLAN OF CARE?YES HAS THE PATIENT BEEN EDUCATED REGARDING PAIN, THE RISK FOR PAIN, THE IMPORTANCE OF EFFECTIVE PAIN MANAGEMENT, AND THE PAIN ASSESSMENT PROCESS?YES PATIENT: DENIES USE OF ANY ILLEGAL SUBSTANCE INCLUDING MARIJUANA OR COCAINE, REPORTS BEING EMOTIONALLY STABLE, REPORTS HAVING A SAFE AND ADEQUATE PLACE TO STORE THE MEDICATIONS, IS AWARE THAT THEY ARE RESPONSIBLE AND GUARDIAN OF THE PRESCRIBED MEDICATIONS, DENIES RECREATIONAL DRUG USE. ADVANCE DIRECTIVES HEALTH CARE PROXY? NO , POWER OF SOCIAL WORK CASE MANAGER? NO . HOSPITALIZATION/MAJOR DIAGNOSTIC PROCEDURE [facility] 2010 DIABETES REVIEW OF SYSTEMS REVIEWED BY: PROVIDER: FERNANDO IRELAND . CONSTITUTIONAL: ANY CHANGE IN YOUR MEDICAL CONDITION? YES, RIGHTLEG . CHILLS NO . FEVER NO . INFECTION: DO YOU HAVE NEW INFECTIONS? NO . DO YOU HAVE HISTORY OF MRSA? NO . MUSCULOSKELETAL: ANY NEW PATTERNS OF PAIN OR NUMBNESS? YES, RIGHT HEEL AND FOOT NUMB AND TINGLE NOW . GASTROENTEROLOGY: ANY NEW CHANGE IN BOWEL CONTROL? NO . GENITOURINARY: ANY NEW CHANGE IN BLADDER CONTROL? NO . IS THERE A CHANCE YOU COULD BE ? NO . HEMATOLOGY/LYMPH: DO YOU TAKE ANY BLOOD THINNERS? (FOR EXAMPLE- COUMADIN, PLAVIX, AGGRENOX, PLATEL, PRADAXA, OR XARELTO) NO . WHEN WAS YOUR LAST DOSE? DATE: TIME: . NEUROLOGY: HAVE YOU FALLEN IN THE PAST 6 MONTHS? NO . ANY NEW EXTREMITY NUMBNESS OR WEAKNESS? NO . CARDIOLOGY: DO YOU HAVE A PACEMAKER OR DEFIBRILLATOR? NO . RESPIRATORY: HAVE YOU BEEN SICK IN THE PAST WEEK? NO . FEVER NO . FLU LIKE SYMPTOMS? NO . COUGH NO . INTEGUMENTARY: DO YOU HAVE ANY RASHES OR OPEN SORES? NO . ALLERGIC/IMMUNO: ARE YOU ALLERGIC TO SHELLFISH OR IV DYE? NO . ANY NEW ALLERGIES? NO . PSYCHIATRIC: DO YOU HAVE THOUGHTS OF HURTING YOURSELF OR SOMEONE ELSE? NO . ARE YOU ABUSED, NEGLECTED, OR IN AN UNSAFE ENVIRONMENT? NO . ENDOCRINOLOGY: ARE YOU DIABETIC? YES . OTHER: DO YOU NEED ANY PRESCRIPTIONS? NO . IF YES, PLEASE LIST: ____ . ANY NEW PROBLEMS WITH YOUR MEDICATIONS? NO . WHEN DID YOU LAST EAT? ____ . WHEN DID YOU LAST DRINK? ____ . WHAT DID YOU LAST DRINK? ____ . NAME OF PERSON DRIVING YOU HOME? ____ . DO YOU HAVE ANY OTHER QUESTIONS OR CONCERNS 2-3 WEEKS AGO HURT WITH PHYSICAL THERPY USING WEIGHT AND MACHINES WITH HER . VITAL SIGNS WT 325 LBS, HT 68 IN, BMI 49.41 INDEX, BP 135/88 MM HG, HR 105 /MIN, RR 16 /MIN, TEMP 99.1 F, OXYGEN SAT % 98, REVIEWED BY: NL. EXAMINATION GENERAL EXAMINATION: GENERAL APPEARANCE:OBESE. LUNGS:LUNG LUJAN ARE CLEAR TO AUSCULTATION BILATERALLY. GOOD MOVEMENT OF AIR. HEART:S1, S2 IN A REGULAR RATE AND RHYTHM. NO SIGNIFICANT MURMURS, RUBS OR GALLOPS NOTED. MUSCULOSKELETAL:TRIGGER POINTS:RIGHT L4/5 PARASPINAL REGION. LUMBAR SACRAL SPINEMUSCLE STRENGTH TESTING 5/5 BILATERAL.INCREASE LBP WITH MST OVER RIGHT LEG. ASSESSMENTS INTERVERTEBRAL DISC DISORDERS WITH RADICULOPATHY, LUMBAR REGION - M51.16 (PRIMARY) MYOFASCIAL PAIN - M79.1 TREATMENT INTERVERTEBRAL DISC DISORDERS WITH RADICULOPATHY, LUMBAR REGION NOTES: REQUEST MRI L/S SPINE-COMPSTOP PT. PROCEDURES PN WORKMANS' COMP OPINION IN YOUR OPINION, WAS THE INCIDENT THAT THE PATIENT DESCRIBED THE COMPETENT MEDICAL CAUSE OF THIS INJURY/ILLNESS? YES ARE THE PATIENT'S COMPLAINTS CONSISTENT WITH HIS/HER HISTORY OF THE INJURY/ILLNESS? YES IS THE PATIENT'S HISTORY OF THE INJURY/ILLNESS CONSISTENT WITH YOUR OBJECTIVE FINDING? YES WHAT IS THE PERCENTAGE OF TEMPORARY IMPAIRMENT? MODERATE TO MARKED = 66.7% IS THE PATIENT WORKING? NO DOCTOR ON SITE: JORGE ANGUIANO MD PROCEDURE CODES FA211 ESTABILISHED PATIENT [facility] CHARGE DISPOSITION & COMMUNICATION FOLLOW UP 4 WEEKS (REASON: W/C MRI L/S SPINE) ELECTRONICALLY SIGNED BY BKEA CALHOUN ON 02/06/2017 AT 06:52 PM EDT DISCLAIMER : THIS IS A VISIT SUMMARY EXTRACTED FROM THE [employer]? CHART. IT IS NOT A COPY OF THE [employer]? PROGRESS NOTE. SOM
== END ==
LOC: M PAIN 11:15
PROVIDERS: ATTEND Nurse Practitioner Family
DX: G89.29 Other chronic pain (principal); M51.16 Intervertebral disc disorders with radiculopathy, lumbar region; M79.1 Myalgia; I10 Essential (primary) hypertension; E11.9 Type 2 diabetes mellitus without complications; Z88.0 Allergy status to penicillin; Z79.1 Long term (current) use of non-steroidal anti-inflammatories (NSAID); Z79.4 Long term (current) use of insulin; Z79.899 Other long term (current) drug therapy

== ENCOUNTER → 2017-02-14 | Outpatient (CLI) | payer OTHER | LOC: M PAIN 10:00 | PROVIDERS: ATTEND Nurse Practitioner Family | DX: M51.16 Intervertebral disc disorders with radiculopathy, lumbar region (principal); M79.1 Myalgia; G89.29 Other chronic pain; I10 Essential (primary) hypertension; E10.9 Type 1 diabetes mellitus without complications; Z79.4 Long term (current) use of insulin; Z79.899 Other long term (current) drug therapy; Z88.0 Allergy status to penicillin ==

== ENCOUNTER → 2017-04-28 | Outpatient (CLI) | payer OTHER | LOC: M PAIN 10:30 | DX: G89.29 Other chronic pain (principal); M51.16 Intervertebral disc disorders with radiculopathy, lumbar region; M51.26 Other intervertebral disc displacement, lumbar region; I10 Essential (primary) hypertension; E11.9 Type 2 diabetes mellitus without complications; H54.8 Legal blindness, as defined in USA; Z88.0 Allergy status to penicillin; Z79.4 Long term (current) use of insulin; Z79.899 Other long term (current) drug therapy | CPT/HCPCS: G0463 ==

== ENCOUNTER → 2020-04-29 | Outpatient (CLI) | payer SELFPAY | LOC: M LABSMTC 13:20 | PROVIDERS: ATTEND Pediatrics | DX: Z20.822 Contact with and (suspected) exposure to COVID-19 (principal) ==

== ENCOUNTER → 2021-01-20 | Outpatient (REF) | payer OTHER | LOC: M LAB REF 13:40 | PROVIDERS: ATTEND Nurse Practitioner Family | DX: E83.42 Hypomagnesemia (principal) ==

== ENCOUNTER → 2022-07-07 | Outpatient (REF) | payer OTHER ==
[2022-07-07 19:57] LABS: CREATININE,RANDOM URINE 40.2 MG/DL
[2022-07-07 19:59] LABS: TOTAL PROTEIN,RANDOM URINE 184.9 MG/DL (0.0-14.0)
== END ==
LOC: M LAB REF 17:19
PROVIDERS: ATTEND Nurse Practitioner Family
DX: R80.9 Proteinuria, unspecified (principal)

== ENCOUNTER → 2023-01-19 | Outpatient (REF) | payer OTHER ==
[2023-01-19 18:34] LABS: TOTAL PROTEIN,RANDOM URINE 26.5 MG/DL (0.0-14.0)
[2023-01-19 18:41] LABS: FREE T4 1.1 NG/DL (0.89-1.76); THYROID STIMULATING HORMONE 5.076 uIU/ML (0.55-4.78)
== END ==
LOC: M LAB REF 17:03
PROVIDERS: ATTEND Nurse Practitioner Family
DX: E03.9 Hypothyroidism, unspecified (principal); R80.9 Proteinuria, unspecified

== ENCOUNTER → 2023-06-06 | Outpatient (REF) | payer OTHER ==
[~2023-06-06] MED LIST: ALBU8.5H INH; AMLO1TAB25 PO; ATOR40TA75 PO; CARV25TA PO; CETI-24 PO; CIME300T91 PO; DULO1CAP6 PO; ELINTAB PO; ERGO500029 PO; FARX1TAB3 PO; FINE20TA PO; HYDR-3490 PO; INSUR50VL SQ; LEVO125T4 PO; LEVO1TAB39 PO; LOSA100T46 PO; MELO15TA28 PO; TIRZ7.5P SQ; TOUJ300I2 SQ
== END ==
LOC: M SFHCWOUN 16:42
PROVIDERS: ATTEND Physician Assistant
DX: L97.512 Non-pressure chronic ulcer of other part of right foot with fat layer exposed (principal); M79.89 Other specified soft tissue disorders

== ENCOUNTER 2023-06-13 10:39 | Inpatient (IN) | payer OTHER, MEDICAID ==
[~2023-06-13] VITALS: Ht 172.7 cm; Wt 163.7 kg
[2023-06-13 12:08] LABS: BASO # 0.1 10^3/uL (0.0-0.2); BASO % 0.5 % (0.0-1.0); EOS # 0.3 10^3/uL (0.0-0.5); EOS % 2.6 % (0.0-3.0); HEMATOCRIT 42.5 % (36.0-47.0); HEMOGLOBIN 13.6 g/dl (12.0-15.5); LYMPH # 1.9 10^3/uL (1.5-5.0); LYMPH % 19.5 % (24.0-44.0); MEAN CORPUSCULAR HEMOGLOBIN 26.8 pg (27.0-33.0); MEAN CORPUSCULAR VOLUME 83.7 fl (80.0-96.0); MONO # 0.6 10^3/uL (0.0-0.8); MONO % 5.5 % (2.0-8.0); NEUTROPHILS # 7.1 10^3/uL (1.5-8.5); NEUTROPHILS % 71.5 % (36.0-66.0); PLATELET COUNT, AUTOMATED 471 10^3/uL (150-450); RED BLOOD COUNT 5.08 10^6/uL (4.00-5.40)
[2023-06-13 12:36] LABS: BLOOD UREA NITROGEN 17 MG/DL (9-23); CALCIUM LEVEL 9.1 MG/DL (8.5-10.1); CARBON DIOXIDE LEVEL 30 MMOL/L (20-31); CHLORIDE LEVEL 103 MMOL/L (98-107); GLOMERULAR FILTRATION RATE > 60.0 (>60); GLUCOSE, FASTING 212 MG/DL (60-100); POTASSIUM SERUM 4.2 MMOL/L (3.5-5.1); SODIUM LEVEL 137 MMOL/L (136-145)
[2023-06-13 12:58] LABS: RSV AMPLIFICATION NEGATIVE (NEGATIVE)
[2023-06-13 13:01] LABS: HCG, SERUM QUALITATIVE NEGATIVE (NEGATIVE)
[2023-06-13 14:05] LABS: ERYTHROCYTE SEDIMENTATION RATE > 130 mm/hr (0-20)
[2023-06-13 14:26] LABS: ALBUMIN 2.8 G/DL (3.2-5.2); ALKALINE PHOSPHATASE 91 U/L (46-116); ALT/SGPT 17 U/L (7.0-40); AST/SGOT 12 U/L (<34); BILIRUBIN,DIRECT < 0.1 MG/DL (<0.4); BILIRUBIN,TOTAL 0.2 MG/DL (0.3-1.2)
[2023-06-13] MEDS ORDERED: VANCOMYCIN HCL 2,000 MG in IV FLUID PLACE HOLDER 1 EA IV ONE (15:45)
[2023-06-13] MEDS: VANCOMYCIN HCL 1,000 MG, VIAL MATE ADAPTER 1 EACH in D5W 250 ML IV ONE ×2 (16:01→17:06)
[2023-06-13] MEDS ORDERED: MAALOX 30 ML SUSP *UDC PO PRN (16:50)
[2023-06-13] MEDS ORDERED: ACETAMINOPHEN TAB 650MG DOSE (2X325MG) PO PRN (16:50)
[2023-06-13] MEDS ORDERED: MOM 30ML SUSPENSION UDC PO PRN (16:50)
[2023-06-13] MEDS ORDERED: GLUCAGON INJ 1MG VIAL SC PRN (16:55)
[2023-06-13] MEDS ORDERED: GLUCOSE 4GM CHEW TABLET PO PRN (16:55)
[2023-06-13] MEDS ORDERED: DEXTROSE 50% 50ML SYRINGE IV PRN (16:55)
[2023-06-13] MEDS ORDERED: FARX1TAB3 PO (17:25)
[2023-06-13] MEDS ORDERED: ALBU8.5H INH (17:25)
[2023-06-13] MEDS ORDERED: TIRZ7.5P SQ (17:25)
[2023-06-13] MEDS ORDERED: FINE20TA PO (17:25)
[2023-06-13] MEDS ORDERED: ATOR40TA75 PO (17:25)
[2023-06-13] MEDS ORDERED: ERGO500029 PO (17:25)
[2023-06-13] MEDS ORDERED: LEVO125T4 PO (17:25)
[2023-06-13] MEDS ORDERED: HYDR-3490 PO (17:25)
[2023-06-13] MEDS ORDERED: MELO15TA28 PO (17:25)
[2023-06-13] MEDS ORDERED: AMLO1TAB25 PO (17:25)
[2023-06-13] MEDS ORDERED: ELINTAB PO (17:25)
[2023-06-13] MEDS ORDERED: INSUR50VL SQ (17:25)
[2023-06-13] MEDS ORDERED: LEVO1TAB39 PO (17:25)
[2023-06-13] MEDS ORDERED: TOUJ300I2 SQ (17:25)
[2023-06-13] MEDS ORDERED: DULO1CAP6 PO (17:25)
[2023-06-13] MEDS ORDERED: CETI-24 PO (17:25)
[2023-06-13] MEDS ORDERED: LOSA100T46 PO (17:25)
[2023-06-13] MEDS ORDERED: CARV25TA PO (17:25)
[2023-06-13] MEDS ORDERED: CIME300T91 PO (17:25)
[2023-06-13] MEDS ORDERED: HOME MED LIST COMPLETE! XX SCH (17:40)
[2023-06-13] MEDS: LevoFLOXacin IV 750 MG in IV 1 EA IV SCH (18:18)
[2023-06-13] MEDS: INSULIN LISPRO (NovoLOG) PER UNIT SC SCH ×2 (18:26→21:00)
[2023-06-13 22:00] VITALS: BP 139/83; TEMP 98.2; O2SAT 95
[2023-06-13] MEDS: HEPARIN SOD (PORCINE) 5000UNITS/ML 1ML VIAL/SYRINGE SC SCH (22:12)
[2023-06-13] MEDS ORDERED: ALBUTEROL 90 MCG/ACT 8GM HFA INHALER INH PRN (22:20)
[2023-06-13] MEDS: DULoxetine 30MG CAPSULE (CYMBALTA) PO SCH (22:46)
[2023-06-13] MEDS: CARVedilol 12.5 MG TAB PO SCH (22:47)
[2023-06-14] MEDS: LEVOTHYROXINE 125MCG TABLET (0.125MG) PO SCH (05:44)
[2023-06-14 05:50] VITALS: BP 139/84; TEMP 98.1; O2SAT 97
[2023-06-14] MEDS ORDERED: DEXTROSE 50% 50ML SYRINGE IV PRN ×3 (06:25→20:50)
[2023-06-14] MEDS ORDERED: GLUCOSE 4GM CHEW TABLET PO PRN ×3 (06:25→20:50)
[2023-06-14] MEDS ORDERED: GLUCAGON INJ 1MG VIAL SC PRN ×3 (06:25→20:50)
[2023-06-14 06:47] LABS: BLOOD UREA NITROGEN 13 MG/DL (9-23); CALCIUM LEVEL 9.3 MG/DL (8.5-10.1); CARBON DIOXIDE LEVEL 30 MMOL/L (20-31); CHLORIDE LEVEL 101 MMOL/L (98-107); CREATININE FOR GFR 0.58 MG/DL (0.55-1.30); GLOMERULAR FILTRATION RATE > 60.0 (>60); GLUCOSE, FASTING 227 MG/DL (60-100); MAGNESIUM LEVEL 2.1 MG/DL (1.8-2.4); POTASSIUM SERUM 3.7 MMOL/L (3.5-5.1); SODIUM LEVEL 137 MMOL/L (136-145)
[2023-06-14] MEDS: INSULIN LISPRO (NovoLOG) PER UNIT SC SCH ×2 (06:49→21:47)
[2023-06-14] MEDS: LOSARTAN 50MG TABLET PO SCH (09:03)
[2023-06-14] MEDS ORDERED: MIDAZOLAM INJ 2MG/2ML VIAL As Ordered ONE (12:53)
[2023-06-14] MEDS ORDERED: fentaNYL 100 MCG/2 ML INJECTION As Ordered ONE (12:53)
[2023-06-14] MEDS ORDERED: ONDANSETRON 4MG 2ML VIAL As Ordered ONE (12:53)
[2023-06-14] MEDS ORDERED: LIDOCAINE 2% 100MG/5ML SDV (FOR ANES.) As Ordered ONE (12:53)
[2023-06-14] MEDS ORDERED: propofoL 200 MG/20 ML VIAL As Ordered ONE (12:54)
[2023-06-14] MEDS: LIDOCAINE 1% SDV 30ML VIAL As Ordered ONE (13:41)
[2023-06-14] MEDS: INSULIN LISPRO (NovoLOG) PER UNIT SC PRN (15:07)
[2023-06-14 15:50] VITALS: BP 128/81; TEMP 97.6
[2023-06-14 19:50] VITALS: BP 109/58; TEMP 97.7; O2SAT 97
[2023-06-15 05:16] VITALS: BP 134/81; TEMP 97.5
[2023-06-15 07:28] LABS: BLOOD UREA NITROGEN 16 MG/DL (9-23); CALCIUM LEVEL 8.6 MG/DL (8.5-10.1); CARBON DIOXIDE LEVEL 29 MMOL/L (20-31); CHLORIDE LEVEL 99 MMOL/L (98-107); CREATININE FOR GFR 0.64 MG/DL (0.55-1.30); GLOMERULAR FILTRATION RATE > 60.0 (>60); GLUCOSE, FASTING 327 MG/DL (60-100); POTASSIUM SERUM 3.8 MMOL/L (3.5-5.1); SODIUM LEVEL 136 MMOL/L (136-145)
[2023-06-15] MEDS: INSULIN LISPRO (NovoLOG) PER UNIT SC SCH (07:44)
[2023-06-15] MEDS: LEVEMIR (INSULIN DETEMIR) 1 UNITS/0.01ML SC SCH ×2 (09:23→21:43)
[2023-06-15] MEDS: LevoFLOXacin 750 MG TABLET PO SCH (18:04)
[2023-06-15 19:59] VITALS: BP 151/78; TEMP 97.7; O2SAT 93
[2023-06-16 05:43] VITALS: BP 134/69; TEMP 97.7; O2SAT 96
[2023-06-16 07:01] LABS: BASO % 0.6 % (0.0-1.0); EOS # 0.2 10^3/uL (0.0-0.5); EOS % 3.8 % (0.0-3.0); HEMATOCRIT 36.2 % (36.0-47.0); HEMOGLOBIN 11.6 g/dl (12.0-15.5); LYMPH # 1.7 10^3/uL (1.5-5.0); LYMPH % 27.5 % (24.0-44.0); MEAN CORPUSCULAR HEMOGLOBIN 27.2 pg (27.0-33.0); MEAN CORPUSCULAR VOLUME 84.8 fl (80.0-96.0); MONO # 0.6 10^3/uL (0.0-0.8); MONO % 8.7 % (2.0-8.0); NEUTROPHILS # 3.7 10^3/uL (1.5-8.5); NEUTROPHILS % 58.9 % (36.0-66.0); PLATELET COUNT, AUTOMATED 341 10^3/uL (150-450); RED BLOOD COUNT 4.27 10^6/uL (4.00-5.40); WHITE BLOOD COUNT 6.3 10^3/uL (4.0-10.0)
[2023-06-16 07:22] LABS: BLOOD UREA NITROGEN 14 MG/DL (9-23); CALCIUM LEVEL 8.7 MG/DL (8.5-10.1); CARBON DIOXIDE LEVEL 31 MMOL/L (20-31); CHLORIDE LEVEL 99 MMOL/L (98-107); CREATININE FOR GFR 0.55 MG/DL (0.55-1.30); GLOMERULAR FILTRATION RATE > 60.0 (>60); GLUCOSE, FASTING 327 MG/DL (60-100); MAGNESIUM LEVEL 2.2 MG/DL (1.8-2.4); POTASSIUM SERUM 3.6 MMOL/L (3.5-5.1); SODIUM LEVEL 134 MMOL/L (136-145)
[2023-06-16] MEDS: LEVEMIR (INSULIN DETEMIR) 1 UNITS/0.01ML SC SCH (08:19)
[2023-06-16 14:06] VITALS: BP 120/68; TEMP 97.7; O2SAT 97
[2023-06-16] MEDS: INSULIN LISPRO (NovoLOG) PER UNIT SC SCH (17:20)
[2023-06-16 22:00] VITALS: BP 124/88; TEMP 97.9; O2SAT 97
[2023-06-17 05:57] VITALS: BP 116/61; TEMP 96.8; O2SAT 96
[2023-06-17 07:27] LABS: BLOOD UREA NITROGEN 13 MG/DL (9-23); CALCIUM LEVEL 8.7 MG/DL (8.5-10.1); CARBON DIOXIDE LEVEL 30 MMOL/L (20-31); CHLORIDE LEVEL 100 MMOL/L (98-107); CREATININE FOR GFR 0.55 MG/DL (0.55-1.30); GLOMERULAR FILTRATION RATE > 60.0 (>60); GLUCOSE, FASTING 311 MG/DL (60-100); MAGNESIUM LEVEL 2.1 MG/DL (1.8-2.4); POTASSIUM SERUM 3.6 MMOL/L (3.5-5.1); SODIUM LEVEL 137 MMOL/L (136-145)
[2023-06-17] MEDS: INSULIN LISPRO (NovoLOG) PER UNIT SC SCH ×2 (08:51→17:31)
[2023-06-17 14:00] VITALS: BP 149/91; TEMP 97.3; O2SAT 93
[2023-06-17] MEDS: LEVEMIR (INSULIN DETEMIR) 1 UNITS/0.01ML SC SCH (21:03)
[2023-06-17 22:00] VITALS: BP 130/76; TEMP 98.2; O2SAT 95
[2023-06-18 06:00] VITALS: BP 128/75; TEMP 97.5; O2SAT 95
[2023-06-18 06:54] LABS: BLOOD UREA NITROGEN 15 MG/DL (9-23); CALCIUM LEVEL 8.6 MG/DL (8.5-10.1); CARBON DIOXIDE LEVEL 30 MMOL/L (20-31); CHLORIDE LEVEL 102 MMOL/L (98-107); CREATININE FOR GFR 0.56 MG/DL (0.55-1.30); GLOMERULAR FILTRATION RATE > 60.0 (>60); GLUCOSE, FASTING 287 MG/DL (60-100); POTASSIUM SERUM 3.7 MMOL/L (3.5-5.1); SODIUM LEVEL 139 MMOL/L (136-145)
[2023-06-18 07:10] LABS: HEMOGLOBIN A1c 9.8 % (4.0-6.0)
[2023-06-18] MEDS: LEVEMIR (INSULIN DETEMIR) 1 UNITS/0.01ML SC SCH (08:59)
[2023-06-18] MEDS: INSULIN LISPRO (NovoLOG) PER UNIT SC SCH (09:00)
[2023-06-18 16:00] VITALS: BP 138/76; TEMP 97.9; O2SAT 97
[2023-06-18 20:25] VITALS: BP 127/56; TEMP 96.6; O2SAT 96
[2023-06-19 06:08] VITALS: BP 111/64; TEMP 97.5; O2SAT 96
[2023-06-19 07:23] LABS: BLOOD UREA NITROGEN 16 MG/DL (9-23); CALCIUM LEVEL 8.4 MG/DL (8.5-10.1); CARBON DIOXIDE LEVEL 28 MMOL/L (20-31); CHLORIDE LEVEL 103 MMOL/L (98-107); CREATININE FOR GFR 0.55 MG/DL (0.55-1.30); GLOMERULAR FILTRATION RATE > 60.0 (>60); GLUCOSE, FASTING 237 MG/DL (60-100); MAGNESIUM LEVEL 1.9 MG/DL (1.8-2.4); POTASSIUM SERUM 3.7 MMOL/L (3.5-5.1); SODIUM LEVEL 138 MMOL/L (136-145)
[2023-06-19 14:00] VITALS: BP 123/98; TEMP 97.7; O2SAT 96
[2023-06-19 20:02] VITALS: BP 130/70; TEMP 97.7; O2SAT 97
[2023-06-20 05:23] VITALS: BP 132/72; TEMP 97.5; O2SAT 93
[2023-06-20 07:15] VITALS: BP 130/70; TEMP 97.5; O2SAT 94
[2023-06-20 08:12] LABS: BLOOD UREA NITROGEN 16 MG/DL (9-23); CALCIUM LEVEL 8.5 MG/DL (8.5-10.1); CARBON DIOXIDE LEVEL 27 MMOL/L (20-31); CHLORIDE LEVEL 102 MMOL/L (98-107); CREATININE FOR GFR 0.55 MG/DL (0.55-1.30); GLOMERULAR FILTRATION RATE > 60.0 (>60); GLUCOSE, FASTING 287 MG/DL (60-100); MAGNESIUM LEVEL 1.8 MG/DL (1.8-2.4); POTASSIUM SERUM 3.9 MMOL/L (3.5-5.1); SODIUM LEVEL 137 MMOL/L (136-145)
[2023-06-20 14:03] VITALS: BP 114/60; TEMP 97.5; O2SAT 95
[2023-06-20] MEDS: LEVEMIR (INSULIN DETEMIR) 1 UNITS/0.01ML SC SCH (20:57)
[2023-06-20 22:00] VITALS: BP 119/59; TEMP 97.3; O2SAT 98
[2023-06-21 05:30] VITALS: BP 130/72; TEMP 97.2; O2SAT 93
[2023-06-21 07:14] LABS: HEMATOCRIT 37.1 % (36.0-47.0); HEMOGLOBIN 11.8 g/dl (12.0-15.5); MEAN CORPUSCULAR HEMOGLOBIN 26.9 pg (27.0-33.0); MEAN CORPUSCULAR HGB CONC 31.8 g/dl (32.0-36.5); MEAN CORPUSCULAR VOLUME 84.7 fl (80.0-96.0); PLATELET COUNT, AUTOMATED 385 10^3/uL (150-450); RED BLOOD COUNT 4.38 10^6/uL (4.00-5.40); WHITE BLOOD COUNT 6.7 10^3/uL (4.0-10.0)
[2023-06-21 07:33] LABS: BLOOD UREA NITROGEN 17 MG/DL (9-23); CALCIUM LEVEL 8.6 MG/DL (8.5-10.1); CARBON DIOXIDE LEVEL 28 MMOL/L (20-31); CHLORIDE LEVEL 101 MMOL/L (98-107); CREATININE FOR GFR 0.54 MG/DL (0.55-1.30); GLOMERULAR FILTRATION RATE > 60.0 (>60); GLUCOSE, FASTING 277 MG/DL (60-100); MAGNESIUM LEVEL 1.8 MG/DL (1.8-2.4); PHOSPHORUS LEVEL 4.3 MG/DL (2.5-4.9); POTASSIUM SERUM 3.7 MMOL/L (3.5-5.1); SODIUM LEVEL 137 MMOL/L (136-145)
[2023-06-21] MEDS: CEPHALEXIN 500 MG CAP PO SCH (08:42)
[2023-06-21 08:44] VITALS: BP 128/72
[2023-06-21] MEDS ORDERED: CEPH500C PO (12:14)
[2023-06-21] MEDS ORDERED: METR-265 PO (12:14)
[2023-06-21] MEDS: metroNIDAZOLE (FLAGYL) 500MG TABLET PO SCH (13:23)
== END 2023-06-21 14:30 | disposition home or self-care (01) | DRG 629 ==
LOC: M ED 10:39 → M ED INP 16:49 → M MS5PR 18:50
PROVIDERS: ADMIT Student in an Organized Health Care Education/Training Program; ATTEND Internal Medicine
PROC: 0QBN0ZZ Excision of Right Metatarsal, Open Approach (ICD-10-PCS; principal; 2023-06-14 14:00)
DX: E11.69 Type 2 diabetes mellitus with other specified complication (principal); M86.171 Other acute osteomyelitis, right ankle and foot; Z68.43 Body mass index [BMI] 50.0-59.9, adult; I10 Essential (primary) hypertension; E78.5 Hyperlipidemia, unspecified; E66.01 Morbid (severe) obesity due to excess calories; E03.9 Hypothyroidism, unspecified; E11.621 Type 2 diabetes mellitus with foot ulcer; L97.519 Non-pressure chronic ulcer of other part of right foot with unspecified severity; E11.65 Type 2 diabetes mellitus with hyperglycemia; B96.4 Proteus (mirabilis) (morganii) as the cause of diseases classified elsewhere; L08.9 Local infection of the skin and subcutaneous tissue, unspecified; B95.1 Streptococcus, group B, as the cause of diseases classified elsewhere; B95.2 Enterococcus as the cause of diseases classified elsewhere; Z88.0 Allergy status to penicillin; Z79.4 Long term (current) use of insulin; Z79.890 Hormone replacement therapy; Z79.899 Other long term (current) drug therapy

== ENCOUNTER → 2023-10-03 | Outpatient (REF) | payer OTHER, MEDICAID ==
[~2023-10-03] MED LIST changes: +CEPH500C PO; +METR-265 PO
[2023-10-03 18:52] LABS: THYROID STIMULATING HORMONE 1.756 uIU/ML (0.55-4.78); THYROXINE (T4) 11.4 UG/DL (4.5-10.9)
[2023-10-03 18:53] LABS: FREE THYROXINE INDEX 2.9 % (1.3-4.8)
== END ==
LOC: M LAB REF 17:19
PROVIDERS: ATTEND Nurse Practitioner Family
DX: E03.9 Hypothyroidism, unspecified (principal)